=== PATIENT | male | born 1995 | race African-American/Black ===

== ENCOUNTER 2025-05-12 20:44 | Emergency (ER) | payer SELFPAY ==
[2025-05-12] MEDS ORDERED: Naloxone 2 MG/2 ML Syringe ONE ×2 (20:45→20:49)
[2025-05-12] MEDS: Naloxone 2 MG/2 ML Syringe IVPUSH ONE ×2 (20:46→21:27)
[2025-05-12] MEDS ORDERED: Sodium Chloride 0.9% 10 ML Syringe FLUSH PRN (20:51)
[2025-05-12 21:12] LABS: BASOPHILS PERCENT AUTO 0.5 % (0.0-1.0); EOSINOPHILS PERCENT AUTO 0.3 % (0.0-6.0); HEMATOCRIT 41.7 % (42.0-52.0); HEMOGLOBIN 14.3 gm/dl (14.0-18.0); IMMATURE GRAN ABSOLUTE AUTO 0.01 K/mm3 (0.00-0.05); IMMATURE GRAN PERCENT AUTO 0.2 % (0.0-0.4); LYMPHOCYTES ABSOLUTE AUTO 3.2 K/mm3 (1.0-4.8); LYMPHOCYTES PERCENT AUTO 52.5 % (24.0-44.0); MEAN CORPUSCULAR HEMOGLOBIN 29.5 pg (28.0-32.0); MEAN CORPUSCULAR HGB CONC 34.3 g/dl (32.0-36.0); MEAN CORPUSCULAR VOLUME 86.2 fl (83.0-99.0); MEAN PLATELET VOLUME 9.6 fl (9.4-12.4); MONOCYTES ABSOLUTE AUTO 0.3 K/mm3 (0.0-0.8); MONOCYTES PERCENT AUTO 4.8 % (0.0-8.0); NEUTROPHILS ABSOLUTE AUTO 2.5 K/mm3 (1.8-7.7); NEUTROPHILS PERCENT AUTO 41.7 % (41.0-71.0); PLATELET COUNT,PLT 272 K/mm3 (150-400); RED BLOOD CELL COUNT 4.84 M/mm3 (4.52-5.90); WHITE BLOOD CELL COUNT,WBC 6.06 K/mm3 (3.9-11.3)
[2025-05-12] MEDS: Sodium Chloride 0.9% 1,000 ML IV ONE (21:24)
[2025-05-12 21:25] LABS: LACTIC ACID 1.5 mmol/L (0.4-2.0)
[2025-05-12 21:26] LABS: APPEARANCE,URINE CLEAR (Clear); BILIRUBIN,URINE NEGATIVE (Negative); COLOR,URINE LIGHT YELLOW (Yellow); GLUCOSE,URINE NEGATIVE (Negative); KETONES,URINE NEGATIVE (Negative); LEUKOCYTE ESTERASE,URINE TRACE (Negative); NITRITE,URINE NEGATIVE (Negative); OCCULT BLOOD,URINE NEGATIVE (Negative); PH,URINE 6.5 (5.0-8.0); PROTEIN,URINE NEGATIVE (Negative); UROBILINOGEN,URINE 0.2 (0.2-1.0)
[2025-05-12] MEDS: Ondansetron 4 MG/2 ML SDV IVPUSH ONE (21:32)
[2025-05-12 21:36] LABS: BARBITURATE SCREEN,URINE NEGATIVE (CUTOFF=200); BENZODIAZEPINES SCREEN,URINE NEGATIVE (CUTOFF=150); BUPRENORPHINE SCREEN,URINE NEGATIVE (CUTOFF=10); METHADONE SCREEN, URINE NEGATIVE (CUT0FF=200); METHAMPHETAMINES SCREEN, URINE PRESUMPTIVE POSITIVE (CUTOFF=500); OXYCODONE SCREEN,URINE NEGATIVE (CUT0FF=100); THC SCREEN,URINE 20 NG/ML PRESUMPTIVE POSITIVE (CUTOFF=50)
[2025-05-12 21:37] LABS: AMPHETAMINES SCREEN, URINE NEGATIVE (CUTOFF=500)
[2025-05-12 21:40] LABS: BACTERIA,URINE FEW /hpf (FEW); MUCUS,URINE FEW /hpf (FEW); RBC,URINE 0-5 /hpf (0-5); SQUAMOUS EPITHELIAL CELLS,UR 0-5 /hpf (0-5); WBC,URINE 0-5 /hpf (0-5)
[2025-05-12] MEDS ORDERED: LORazepam 2 MG/ML SDV ONE (21:41)
[2025-05-12] MEDS: droPERidol 2.5 MG/ML SDV IV ONE (21:42)
[2025-05-12] MEDS ORDERED: droPERidol 2.5 MG/ML SDV ONE (21:42)
[2025-05-12] MEDS: LORazepam 2 MG/ML SDV IVPUSH ONE (21:44)
[2025-05-12 21:49] LABS: A/G RATIO 0.9 (1-2); ALANINE AMINOTRANSFERASE,ALT 22 U/L (16-63); ALBUMIN 3.4 g/dl (3.4-5.0); ALKALINE PHOSPHATASE 72 U/L (46-116); ANION GAP 13.3 (5-15); ASPARTATE AMNIOTRANSFERASE,AST 23 U/L (15-37); BILIRUBIN TOTAL 0.4 mg/dL (0.2-1.0); BLOOD UREA NITROGEN,BUN 8 mg/dL (7-18); CALCIUM 8.5 mg/dL (8.5-10.1); CARBON DIOXIDE,CO2 26 mEq/L (21-32); CHLORIDE,CL 110 mEq/L (98-107); CREATINE KINASE,CK 490 U/L (39-308); ESTIMATED GFR 103 mL/min (>60); ETHANOL BLOOD MEDICAL 0.36 gm% (0.00); GLUCOSE RANDOM 92 mg/dL (70-99); LIPASE 19 U/L (16-77); POTASSIUM,K 3.3 mEq/L (3.5-5.1); PROTEIN TOTAL,TP 7.2 g/dl (6.4-8.2); SODIUM,NA 146 mEq/L (136-145); TROPONIN I HIGH SENSITIVITY 10 pg/mL (<=76); TSH 0.852 uIU/mL (0.358-3.74)
[2025-05-12 21:54] LABS: ACETAMINOPHEN 0 ug/mL (10-30)
[2025-05-12] MEDS: Iopamidol 612 MG/ML 100 ML Bottle IVPUSH ONE (22:39)
== END 2025-05-13 04:35 | disposition home or self-care (01) ==
LOC: JD.ED 20:44
DX: F10.129 Alcohol abuse with intoxication, unspecified (principal); F15.90 Other stimulant use, unspecified, uncomplicated; E87.0 Hyperosmolality and hypernatremia; Y90.0 Blood alcohol level of less than 20 mg/100 ml
CPT/HCPCS: 36415; 70450; 71260; 72125; 74177; 80053; 80143; 80179; 80306; 80307; 81001; 82140; 82550; 83605; 83690; 83735; 83880; 84443; 84484; 85025; 87040; 87086; 93005; 96361; 96374; 96375; 96376; 99285; C1758; J1790; J2060; J2310; J2405; J7030; Q9967